=== PATIENT | female | born 1965 | race Caucasian/White ===

== ENCOUNTER → 2018-07-07 | Outpatient (CLI) | payer OTHER ==
--- NOTE | 2018-07-13 17:05 | MM ---
Reason for exam: screening (asymptomatic). MG Screening Mammo w CAD Bilateral CC and MLO view(s) were taken. No prior studies available for comparison. The breast tissue is heterogeneously dense. This may lower the sensitivity of mammography. There are benign-appearing bilateral breast calcifications. No significant changes when compared with prior studies. ASSESSMENT: Benign, BI-RAD 2 RECOMMENDATION: Routine screening mammogram of both breasts in 1 year.
== END | disposition home or self-care (01) ==
LOC: RADMAMWWP 12:12 → EDSEX 12:12 → MERGE 12:12
PROVIDERS: ATTEND Family Medicine
DX: Z12.31 Encounter for screening mammogram for malignant neoplasm of breast (principal)
CPT/HCPCS: 77067

== ENCOUNTER → 2018-08-22 | Outpatient (CLI) | payer OTHER ==
--- NOTE | 2018-08-22 17:05 | CONS ---
CONSULTATION REASON FOR CONSULTATION: Sleep apnea. This is a 52-year-old female patient diagnosed having obstructive sleep apnea many years back through a [facility] in [place]. The patient back then was told to have mild BRIEN with an AHI of 6. She was given CPAP therapy with a full-face mask. Used it for quite some time and then she quit. She has been off treatment for at least 6 years. Over the years, she has gained significant amount of weight. She is coming in for reevaluation. She is snoring and she is having excessive fatigue and sleepiness during the day. She goes to bed around midnight and she wakes up at various times and she thinks she is sleeping almost 7 to 8 hours a night on a daily basis. She wakes up tired and she has problems with memory and concentration and sleepiness. PAST MEDICAL HISTORY: Past medical history of obstructive sleep apnea, hypertension, hyperlipidemia, ascending aortic aneurysm measuring 4.5 cm being followed up at [facility]. She has at [place]. ALLERGIES: Allergies are not known. SURGICAL HISTORY: Includes tubes in the ears. Removal of uterine growth. DRUG ALLERGIES: Not known. MEDICATION: Include blood pressure medications, statins and multivitamins, exact type is not known. SOCIAL HISTORY: Nonsmoker. No history of alcohol. No history of IV drugs. FAMILY HISTORY: Mother obstructive sleep apnea. REVIEW OF SYSTEMS: 12-point review of system was done. Positive findings are mentioned in history of present illness. She has gained around 60 pounds over the past 1 year. She sleeps on her side. She takes naps during the day. She wakes up at least 4 times in the middle of the night and sleep is fragmented. She has occasional issues with anxiety. No sleep paralysis. No hallucinations. No cataplexy. No history of any motor vehicle accident because of feeling drowsy or sleepy. Current Fertile score is at 3. PHYSICAL EXAMINATION: BP is 144/99, pulse 71, respirations 16, temperature 98.3, saturation 99% on room air. Weight is 219. Height is 5 feet 6 inches. Neck size 14-3/4 of an inch. BMI 35.1, Fertile score is at 3. GENERAL APPEARANCE: Calm and comfortable. Head is atraumatic, normocephalic. NECK: Supple. Mallampati class IV. There is no goiter or neck mass. LUNGS: Diminished breath sounds. Otherwise clear. HEART: Sounds regular rate and rhythm. Normal S1, S2. No S3. No murmurs. ABDOMEN: Soft, nontender. No organomegaly. EXTREMITIES: No edema. No cyanosis or clubbing. IMPRESSION: 1. Obstructive sleep apnea, history of. The patient is presenting for evaluation. The patient was on treatment for a few years and then she quit treatment approximately 6 years ago and she is coming in to be re-evaluated. She has gained significant amount of weight in the order of 60 pounds over the past 1 year. 2. Ascending aortic aneurysm. 3. Hypertension. 4. Hyperlipidemia. PLAN: 1. Encourage weight loss. 2. Set up this patient for a screening polysomnogram to establish diagnosis and decide if treatment is needed. MMODL / IJN: [id number] /
== END ==
LOC: EDSEX → MERGE 08-01 10:00 → SLEEP 13:30
PROVIDERS: ATTEND Internal Medicine Critical Care Medicine
DX: G47.33 Obstructive sleep apnea (adult) (pediatric) (principal); I71.2 Thoracic aortic aneurysm, without rupture; I10 Essential (primary) hypertension; E78.5 Hyperlipidemia, unspecified; Z79.899 Other long term (current) drug therapy

== ENCOUNTER → 2022-05-18 | Outpatient (CLI) | payer OTHER ==
--- NOTE | 2022-05-18 15:43 | P.SLEEP ---
History of Present Illness H&P Date: 05/18/22 J 56-year-old male patient who is coming to see me regarding her obstructive sleep apnea. The patient was diagnosed having BRIEN back in 2019. At that time, she had mild disease with an AHI of 7.6 worse during REM sleep with an AHI of 28 during REM sleep. The patient was given a CPAP unit which uses for a short period of time and she ultimately quits. Currently, she is becoming more symptomatic and the patient wants to go back on her treatment. She has also gained approximately 50 pounds. At the time of diagnosis, she is to weigh around 213 pounds and current weight is up to 273. The patient is having loud snoring and sleep fragmentation chronic hypersomnia. The patient was admitted around midnight and she wakes up 8 AM in the morning. Her current Portland score is at 5. She is having trouble with attention memory and concentration. Furthermore, she has had developed a thoracic aortic aneurysm measuring 4.7 cm in size and the patient is also known to have bicuspid aortic valve. She is being followed up with [facility] and importance of CPAP therapy was emphasized to her by her elevator erector helper. She has diabetes mellitus type 2, hypothyroidism, fibromyalgia, hypertension in addition to her obstructive sleep apnea. She seems to be much more committed for treatment. She takes naps during the day. She doesn't have any sleep paralysis hallucinations or cataplexy. No other major significant cardiovascular events over the past 3 years. Her machine is currently functional. The patient has a ResMed 10 units. Her current pressure is set at 8 cm of water. The patient is also in need for a fullface mask as the patient is a mouth breather. Review of Systems Constitutional: Reports daytime sleepiness, Reports fatigue, Reports weight gain (50 pounds) Eyes: bilateral tunnel vision/blind spots, denies as per HPI, denies blurred vision, denies bulging eye, denies decreased vision, denies diplopia, denies discharge, denies dry eye, denies irritation, denies itching, denies pain, denies photophobia, denies loss of peripheral vision, denies loss of vision Ears, nose, mouth and throat: Reports as per HPI Breasts: absent: as per HPI, change in shape, gynecomastia, masses, nipple discharge, pain, skin changes, swelling Cardiovascular: Reports as per HPI Respiratory: Reports as per HPI Gastrointestinal: Reports as per HPI Genitourinary: Reports as per HPI Menstruation: Reports as per HPI Musculoskeletal: Reports as per HPI Musculoskeletal: absent: ankle pain, ankle stiffness, ankle swelling Integumentary: Reports as per HPI Neurological: Reports as per HPI Psychiatric: Reports anhedonia Endocrine: Reports as per HPI Past Medical History Past Medical History: Diabetes Mellitus, Hypertension, Sleep Apnea/CPAP/BIPAP, Thyroid Disorder, Vascular Disorder (Thoracic aortic aneurysm) Additional Past Medical History / Comment(s): Obstructive sleep apnea because as discussed above, fibromyalgia, obesity, hypothyroidism, diabetes mellitus type 2, thoracic aortic aneurysm measuring 4.7 cm in size and the patient is being followed up at [facility], bicuspid aortic valve Past Surgical History: Tubal Ligation Additional Past Surgical History / Comment(s): Removal of a skin lesion from the head Past Psychological History: No Psychological Hx Reported Smoking Status: Never smoker Past Alcohol Use History: None Reported Past Drug Use History: None Reported Medications and Allergies Home Medications and Allergies Comment(s): Losartan 100 mg by mouth daily, hydrochlorothiazide dose not known, levothyroxin, dose not known and the patient takes a cholesterol pill. Other medications include vitamin D and multivitamins. Physical Exam BP is 144/88 with a pulse of 77 and respirations of 16 and a temperature than 60 and oxygen saturations 99%. Her height is 5 feet and 6 inches, weight is 273, His 15-3/4 of an inch with a body mass index of 43.3. Portland score is at 5 Gen. appearance obese, comfortable, no acute distress Head exam was generally normal. There was no scleral icterus or corneal arcus. Mucous membranes were moist. Neck was supple and without jugular venous distension, thyromegaly, or carotid bruits. Carotids were easily palpable bilaterally. There was no adenopathy. Mallampati class IV Lungs were clear to auscultation and percussion, and with normal diaphragmatic excursion. No wheezes or rales were noted. Cardiac exam revealed the PMI to be normally situated and sized. The rhythm was regular and no extrasystoles were noted during several minutes of auscultation. The first and second heart sounds were normal and physiologic splitting of the second heart sound was noted. There were positive murmurs, rubs, clicks, or gallops. The patient is a mild systolic ejection murmur grade 2/6 100 throughout the precordium and the left apex Abdominal exam revealed normal bowel sounds. The abdomen was soft, non-tender, and without masses, organomegaly, or appreciable enlargement of the abdominal aorta. Examination of the extremities revealed easily palpable radial, femoral and pedal pulses. There was no cyanosis, clubbing or edema. Examination of the skin revealed no evidence of significant rashes, suspicious appearing nevi or other concerning lesions. Neurologically, the patient is awake and alert and the patient does not have any focal neurological deficit. Cranial nerves are essentially intact. Assessment and Plan Plan: Symptomatic obstructive sleep apnea. The patient is coming in for evaluation. Diagnosis established in 2019 and at that time the patient had an AHI of 7.6 worse during REM sleep. Nevertheless, since then, the patient has gained more than 50 pounds and she has become more symptomatic. She has a functioning CPAP unit for now. Obesity with interval weight gain, current body mass index is 43 Hypertension Hyperlipidemia Thoracic aortic aneurysm Bicuspid aortic valve Diabetes mellitus type 2 Fibromyalgia Plan We'll euthanize the same CPAP unit was switched this patient on APAP more pressure minimum of 6 and a maximum of 10 we'll offer the patient an Airfit F20 fullface mask small size Encourage weight loss Importance of ongoing CPAP therapy was explained to the patient and the patient was counseled in regard. The patient seems to be committed The patient will see him back in 3 months on for another compliancy check. Appropriate adjustment on CPAP was done. Appropriate mask interface was given. Order was given for a climate line Sleep Note - Sleep Note Sleep Note: Temperature: Pulse Rate: Respiratory Rate: Blood Pressure: SpO2: Height: Weight: BMI: Neck Circumference:
== END ==
LOC: SLEEP 13:03
PROVIDERS: ATTEND Internal Medicine Critical Care Medicine
DX: G47.33 Obstructive sleep apnea (adult) (pediatric) (principal); Z99.89 Dependence on other enabling machines and devices; E66.9 Obesity, unspecified; Z68.41 Body mass index [BMI] 40.0-44.9, adult; I10 Essential (primary) hypertension; E78.5 Hyperlipidemia, unspecified; M79.7 Fibromyalgia; E11.9 Type 2 diabetes mellitus without complications; Z79.4 Long term (current) use of insulin; I71.20 Thoracic aortic aneurysm, without rupture, unspecified; Q23.1 Congenital insufficiency of aortic valve
CPT/HCPCS: 99202